=== PATIENT | female | born 1980 | race Caucasian/White ===

== ENCOUNTER 2017-08-26 07:52 | Day surgery (SDC) | payer OTHER ==
[~2017-08-26] VITALS: Ht 162.6 cm; Wt 123.4 kg
[~2017-08-26 07:52] MED LIST: ACEBUTCAFT; Albuterol17 G1 INH; BCP PO; DOXY100T53 PO; ESCI10; FENO48; HTN MED?; HTN MEDICATION; HYDACE5; HYDACE5 PO; HYDACE5325 PO; HYDMOR2 PO; IBUP800 PO; KETO10 PO; LABE100 PO; LABE200 PO; LOMAIRA8 MG; Lisinopril2.5 MG; METERG.2 PO; METF500; NAPR220 PO; NAPR500 PO; ONDA8ODT MM; OXYACE5T PO; PREN-16 PO; PRENZ; PROCODE120 PO; PROM25; PROM25 PO; Percocet 5-3251 EACH PO; Prednisone20 MG PO; SULTRIDS PO; TRAM50 PO; Zofran Odt4 MG SL
[2017-08-26] MEDS ORDERED: SPIR25 PO (08:50)
[2017-08-26] MEDS ORDERED: Advil200 M1 PO (08:51)
[2017-08-26] MEDS ORDERED: ACET325 (08:51)
== END 2017-08-26 11:42 | disposition home or self-care (01) ==
LOC: ORSCSDS 07:52
PROVIDERS: Obstetrics & Gynecology
PROC: 0WJG4ZZ Inspection of Peritoneal Cavity, Percutaneous Endoscopic Approach (ICD-10-PCS; principal; 2017-08-26 09:30)
DX: N92.1 Excessive and frequent menstruation with irregular cycle (principal); R10.2 Pelvic and perineal pain; N80.3 Endometriosis of pelvic peritoneum; N73.6 Female pelvic peritoneal adhesions (postinfective); I10 Essential (primary) hypertension; E66.01 Morbid (severe) obesity due to excess calories; Z68.42 Body mass index [BMI] 45.0-49.9, adult
CPT/HCPCS: 82947; J0171; J1100; J1580; J2250; J2405; J2710; J3010; J7120

== ENCOUNTER 2017-09-13 07:46 | Emergency (ER) | payer OTHER ==
[~2017-09-13] VITALS: Ht 162.6 cm; Wt 124.7 kg
[~2017-09-13 07:46] MED LIST changes: +ACET325; -Lisinopril2.5 MG; +Lisinopril2.5 MG PO; -METF500; +METF500 PO; +SPIR25 PO
[2017-09-13 08:18] LABS: BASOPHILS ABSOLUTE AUTO 0.03 K/mm3 (0.00-0.23); BASOPHILS PERCENT AUTO 0 % (0-2); EOSINOPHILS ABSOLUTE AUTO 0.14 K/mm3 (0.00-0.68); EOSINOPHILS PERCENT AUTO 2 % (0-6); Hematocrit 31.7 % (33.0-51.0); Hemoglobin 10.1 g/dL (11.5-16.0); IMMATURE GRAN ABSOLUTE AUTO 0.02 K/mm3 (0.00-0.10); IMMATURE GRAN PERCENT AUTO 0 % (0-1); LYMPHOCYTES ABSOLUTE AUTO 2.15 K/mm3 (0.84-5.20); LYMPHOCYTES PERCENT AUTO 31 % (21-46); MONOCYTES ABSOLUTE AUTO 0.54 K/mm3 (0.16-1.47); MONOCYTES PERCENT AUTO 8 % (4-13); Mean Corpuscular HGB 25.8 pg (26.0-34.0); Mean Corpuscular HGB Conc 31.9 g/dL (31.5-36.5); Mean Corpuscular Volume 81 fL (80-100); Mean Platelet Volume 10.5 fL (9.1-12.4); NEUTROPHILS ABSOLUTE AUTO 4.16 K/mm3 (1.96-9.15); NEUTROPHILS PERCENT AUTO 59 % (41-73); Platelet Count 329 K/mm3 (150-400); RDW Coefficient Variation 15.5 % (11.7-14.2); RDW Standard Deviation 45.6 fL (35.1-46.3); Red Blood Cell Count 3.91 M/mm3 (3.80-5.20); White Blood Cell Count 7.04 K/mm3 (4.00-11.30)
[2017-09-13 08:29] LABS: Anion Gap 5 mmol/L (6-16); Blood Urea Nitrogen 9 mg/dL (8-24); Bun/Creatinine Ratio 11.7 (12.0-20.0); CO2, Blood 26 mmol/L (21-32); Calcium, Blood 8.4 mg/dL (8.5-10.1); Chloride, Blood 106 mmol/L (98-108); Creatinine, Blood 0.77 mg/dL (0.40-1.00); Glomerular Filtration Rate >60 (60-); Glucose, Blood 136 mg/dL (70-99); Sodium, Blood 137 mmol/L (136-145)
[2017-09-13 09:31] LABS: Percent Saturation 11.5 % (15.0-50.0)
== END 2017-09-13 09:52 | disposition home or self-care (01) ==
LOC: ER 07:46
PROVIDERS: Emergency Medicine
DX: N92.0 Excessive and frequent menstruation with regular cycle (principal); I10 Essential (primary) hypertension; F32.9 Major depressive disorder, single episode, unspecified; F41.9 Anxiety disorder, unspecified; D64.9 Anemia, unspecified; Z87.891 Personal history of nicotine dependence; Z91.040 Latex allergy status; Z88.2 Allergy status to sulfonamides; Z88.1 Allergy status to other antibiotic agents; Z91.030 Bee allergy status; Z79.899 Other long term (current) drug therapy; Z79.84 Long term (current) use of oral hypoglycemic drugs; Z79.1 Long term (current) use of non-steroidal anti-inflammatories (NSAID)
CPT/HCPCS: 36415; 80048; 82728; 83540; 83550; 85025; 86850; 86900; 86901; 99283

== ENCOUNTER 2017-10-10 17:38 | Emergency (ER) | payer OTHER ==
[~2017-10-10] VITALS: Ht 162.6 cm; Wt 124.7 kg
[2017-10-10 18:01] LABS: Source, Urine Clean Catch
[2017-10-10 18:03] LABS: Blood, Urine 1+ (Neg); Glucose Qualitative, Urine Neg (Neg); Ketones, Urine Neg (Neg); Leukocyte Esterase, Urine Neg (Neg); Nitrite, Urine Pos (Neg); Protein, Urine 1+ (Neg); Urobilinogen, Urine 2+ (Normal)
[2017-10-10 18:13] LABS: Appearance, Urine Clear (Clear); Color, Urine Orange (P-Yellow)
[2017-10-10 18:14] LABS: Bacteria Not Seen /hpf; Red Blood Cells, Urine Not Seen /hpf (0-2); Squamous Epithelial Cells Not Seen /hpf (Few); White Blood Cells, Urine Not Seen /hpf (0-5)
[2017-10-10] MEDS ORDERED: Amoxicillin875 MG PO (19:14)
[2017-10-10] MEDS ORDERED: Flonase 0.05% N16 GM (19:16)
[2017-10-10] MEDS ORDERED: Sudogest60 MG PO (19:16)
[2017-10-10] MEDS ORDERED: Cheratussin AC118 ML PO (19:16)
== END 2017-10-10 19:26 | disposition home or self-care (01) ==
LOC: ER 17:38
PROVIDERS: Physician Assistant
DX: N39.0 Urinary tract infection, site not specified (principal); J32.9 Chronic sinusitis, unspecified; I10 Essential (primary) hypertension; D64.9 Anemia, unspecified; Z91.030 Bee allergy status; Z88.2 Allergy status to sulfonamides; Z88.1 Allergy status to other antibiotic agents; Z91.040 Latex allergy status; Z79.899 Other long term (current) drug therapy; Z79.84 Long term (current) use of oral hypoglycemic drugs
CPT/HCPCS: 81001; 99283

== ENCOUNTER 2017-10-14 11:43 | Day surgery (SDC) | payer OTHER ==
[~2017-10-14] VITALS: Wt 122.5 kg
[~2017-10-14 11:43] MED LIST changes: +Amoxicillin875 MG PO; +Cheratussin AC118 ML PO; +Flonase 0.05% N16 GM; +Sudogest60 MG PO
[2017-10-14] MEDS ORDERED: Phentermine HCl30 MG (12:20)
== END 2017-10-14 15:15 | disposition home or self-care (01) ==
LOC: ORSCSDS 11:43
PROVIDERS: Obstetrics & Gynecology
PROC: 0U5B8ZZ Destruction of Endometrium, Via Natural or Artificial Opening Endoscopic (ICD-10-PCS; principal; 2017-10-14 13:00)
PROC: 0UDB8ZX Extraction of Endometrium, Via Natural or Artificial Opening Endoscopic, Diagnostic (ICD-10-PCS; principal; 2017-10-14 13:00)
DX: N92.1 Excessive and frequent menstruation with irregular cycle (principal); D50.0 Iron deficiency anemia secondary to blood loss (chronic); I10 Essential (primary) hypertension; E66.01 Morbid (severe) obesity due to excess calories; Z68.42 Body mass index [BMI] 45.0-49.9, adult; Z79.899 Other long term (current) drug therapy
CPT/HCPCS: 88305; J0690; J1100; J1885; J2250; J2405; J2550; J3010; J7120

== ENCOUNTER → 2019-01-03 | Outpatient (CLI) | payer OTHER ==
[~2019-01-03] MED LIST changes: +Phentermine HCl30 MG
== END | disposition home or self-care (01) ==
LOC: LAB 16:13 → LAB SHORT 16:13
DX: R10.9 Unspecified abdominal pain (principal)
CPT/HCPCS: 87077; 87086; 87186

== ENCOUNTER → 2020-12-17 | Outpatient (CLI) | payer OTHER | END | disposition home or self-care (01) | LOC: LAB SHORT 14:00 → LAB 14:00 | DX: R30.0 Dysuria (principal); Z88.2 Allergy status to sulfonamides; Z88.1 Allergy status to other antibiotic agents; Z91.038 Other insect allergy status; Z91.040 Latex allergy status | CPT/HCPCS: 87077; 87086; 87186 ==

== ENCOUNTER → 2021-04-26 | Outpatient (CLI) | payer OTHER | END | disposition home or self-care (01) | LOC: LAB SHORT 08:20 → LAB 08:20 | DX: R10.9 Unspecified abdominal pain (principal) | CPT/HCPCS: 87077; 87086; 87186 ==

== ENCOUNTER 2021-10-03 04:53 | Emergency (ER) | payer OTHER ==
[~2021-10-03] VITALS: Ht 162.6 cm; Wt 108.9 kg
[2021-10-03] MEDS ORDERED: ZEBUTAL 50-3251 EAC1 PO (07:44)
[2021-10-03] MEDS ORDERED: ONDA4ODT MM (07:44)
== END 2021-10-03 08:08 | disposition home or self-care (01) ==
LOC: ER 04:53
DX: G43.909 Migraine, unspecified, not intractable, without status migrainosus (principal); I10 Essential (primary) hypertension; Z87.891 Personal history of nicotine dependence; Z88.1 Allergy status to other antibiotic agents; Z91.040 Latex allergy status; Z88.2 Allergy status to sulfonamides; Z91.018 Allergy to other foods; Z79.84 Long term (current) use of oral hypoglycemic drugs; Z79.899 Other long term (current) drug therapy
CPT/HCPCS: J1200; J1885; J2765; J7030

== ENCOUNTER → 2023-03-17 | Outpatient (CLI) | payer OTHER ==
[~2023-03-17] MED LIST changes: +ONDA4ODT MM; +ZEBUTAL 50-3251 EAC1 PO
== END ==
LOC: LAB 08:16 → LAB SHORT 08:16
DX: R30.0 Dysuria (principal)
CPT/HCPCS: 87086

== ENCOUNTER → 2024-04-24 | Outpatient (CLI) | payer OTHER ==
[2024-04-24 11:36] LABS: Source, Urine Clean Catch
[2024-04-24 14:37] LABS: Bilirubin, Urine Neg (Neg); Blood, Urine 4+ (Neg); Color, Urine Yellow (P-Yellow); Glucose Qualitative, Urine Neg (Neg); Ketones, Urine Neg (Neg); Leukocyte Esterase, Urine 2+ (Neg); Nitrite, Urine Neg (Neg); Protein, Urine 2+ (Neg); Specific Gravity, Urine 1.015 (1.003-1.022); Urobilinogen, Urine NORM (Normal)
[2024-04-24 14:49] LABS: Appearance, Urine Cloudy (Clear)
[2024-04-24 15:04] LABS: White Blood Cells, Urine TNTC /hpf (0-5)
[2024-04-24 15:05] LABS: Bacteria Many /hpf; Red Blood Cells, Urine 50-100 /hpf (0-2); Squamous Epithelial Cells Few /hpf (Few); Triple Phosphate Crystals Mod /hpf
== END | disposition home or self-care (01) ==
LOC: LAB SHORT 11:34 → LAB 11:34
PROVIDERS: Family Medicine
DX: R30.0 Dysuria (principal)
CPT/HCPCS: 81001; 87077; 87086; 87186

== ENCOUNTER → 2024-05-01 | Outpatient (CLI) | payer OTHER ==
[2024-05-01 14:23] LABS: Source, Urine Clean Catch
[2024-05-01 16:20] LABS: Appearance, Urine Cloudy (Clear); Blood, Urine 2+ (Neg); Glucose Qualitative, Urine Neg (Neg); Ketones, Urine Neg (Neg); Leukocyte Esterase, Urine Neg (Neg); Nitrite, Urine Pos (Neg); Protein, Urine 1+ (Neg); Specific Gravity, Urine 1.015 (1.003-1.022); Urobilinogen, Urine 3+ (Normal)
[2024-05-01 16:44] LABS: Bilirubin, Urine 2+ (Neg); Color, Urine Orange (P-Yellow)
[2024-05-01 16:46] LABS: Bacteria Many /hpf; Squamous Epithelial Cells Many /hpf (Few)
== END | disposition home or self-care (01) ==
LOC: LAB 14:21 → LAB SHORT 14:21
PROVIDERS: Family Medicine
DX: R30.0 Dysuria (principal)
CPT/HCPCS: 81001; 87086

== ENCOUNTER → 2025-01-28 | Outpatient (CLI) | payer BC, OTHER | LOC: LAB SHORT 08:00 → LAB 08:00 | DX: R10.9 Unspecified abdominal pain (principal) | CPT/HCPCS: 87086 ==